=== PATIENT | male | born 1945 | race Caucasian/White ===

== ENCOUNTER 2025-04-01 06:13 | Inpatient (IN) | payer OTHER ==
[~2025-04-01] VITALS: Ht 167.6 cm; Wt 80.1 kg
[2025-04-01] VITALS (16 sets, daily range): BP systolic 157–172; BP diastolic 76–97
[2025-04-01] MEDS ORDERED: Ondansetron HCl 2 MG / ML 2ML Vial IV PRN ×3 (06:25→13:55)
[2025-04-01 06:30] LABS: BASOPHILS ABSOLUTE AUTO 0.01 K/mm3 (0.00-0.23); BASOPHILS PERCENT AUTO 0 % (0-2); EOSINOPHILS ABSOLUTE AUTO 0.02 K/mm3 (0.00-0.68); EOSINOPHILS PERCENT AUTO 0 % (0-6); Hematocrit 38.3 % (37.0-53.0); Hemoglobin 12.9 g/dL (13.5-17.5); IMMATURE GRAN ABSOLUTE AUTO 0.01 K/mm3 (0.00-0.10); IMMATURE GRAN PERCENT AUTO 0 % (0-1); LYMPHOCYTES ABSOLUTE AUTO 1.00 K/mm3 (0.84-5.20); LYMPHOCYTES PERCENT AUTO 11 % (21-46); MONOCYTES ABSOLUTE AUTO 0.59 K/mm3 (0.16-1.47); MONOCYTES PERCENT AUTO 7 % (4-13); Mean Corpuscular HGB Conc 33.7 g/dL (31.5-36.5); Mean Corpuscular Volume 82 fL (80-100); NEUTROPHILS ABSOLUTE AUTO 7.30 K/mm3 (1.96-9.15); NEUTROPHILS PERCENT AUTO 82 % (41-73); NRBC ABSOLUTE 0.00 K/mm3 (0.00-0.02); NRBC Auto 0.0 /100 WBC (0.0-0.2); Platelet Count 189 K/mm3 (150-400); RDW Coefficient Variation 14.6 % (11.7-14.2); RDW Standard Deviation 43.6 fL (35.1-46.3)
[2025-04-01 06:54] LABS: Alanine Aminotransfer (ALT/SGP 65.0 U/L (12-78); Albumin, Blood 3.8 g/dL (3.4-5.0); Albumin/Globulin Ratio 1.0 (0.8-1.8); Anion Gap 7.0 mmol/L (3-11); Aspartate Aminotrans (AST/SGOT 60.0 U/L (12-37); Bilirubin, Total 0.6 mg/dL (0.1-1.0); Blood Urea Nitrogen 12.0 mg/dL (8-24); CO2, Blood 27.0 mmol/L (21-32); Calcium, Blood 9.6 mg/dL (8.5-10.1); Chloride, Blood 106.0 mmol/L (98-108); Creatinine, Blood 0.85 mg/dL (0.60-1.20); Globulin, Blood 3.9 g/dL (2.2-4.0); Glucose, Blood 177.0 mg/dL (70-99); Potassium, Blood 3.8 mmol/L (3.5-5.5); Sodium, Blood 136.0 mmol/L (136-145); Total Protein, Blood 7.7 g/dL (6.4-8.2)
[2025-04-01 08:50] LABS: Source, Urine Clean Catch
[2025-04-01 08:54] LABS: Bilirubin, Urine Neg (Neg); Color, Urine Yellow (P-Yellow); Glucose Qualitative, Urine 2+ (Neg); Ketones, Urine Neg (Neg); Leukocyte Esterase, Urine Neg (Neg); Protein, Urine 2+ (Neg); Specific Gravity, Urine 1.010 (1.003-1.022); Urobilinogen, Urine NORM (Normal)
[2025-04-01 09:03] LABS: White Blood Cells, Urine 0-2 /hpf (0-5)
[2025-04-01 09:04] LABS: Red Blood Cells, Urine 50-100 /hpf (0-2)
[2025-04-01] MEDS ORDERED: Piperacillin/Tazobactam Sod 4.5 GM in NS 100 ML IV ONE ×2 (10:25→10:40)
[2025-04-01] MEDS ORDERED: Morphine Sulfate 4 MG/1 ML Injection IV ONE (10:35)
--- NOTE | 2025-04-01 11:54 | NUR ---
PT HAS 18G IV TO LEFT AC THAT FLUSHES WELL AND FLOWS TO GRAVITY.
--- NOTE | 2025-04-01 12:20 | NUR ---
PT BROUGHT FROM ER TO DAY SURGERY FOR PROCEDURE WITH DR SEGUNDO. History, Chart, Medications and Allergies reviewed before start of procedure. Lungs clear T/O to Auscultation. PT REPORTS DRINKING 1/3 GLASS OF MILK THIS AM AT 0300. CONFIRMS HE HAS BEEN NPO SINCE THAT TIME, WILL NOTIFY OR TEAM. Pre-Op teaching done. Pt verbalizes understanding. PT BELONGINGS PLACED UNDERNEATH GURNEY FOR SAFEKEEPING. PT GLASSES AND DENTURES TAKEN TO PACU FOR SAFEKEEPING.
--- NOTE | 2025-04-01 12:27 | NUR ---
REPORT GIVEN TO DI RODAS TO ASSUME CARE OF PT AT THIS TIME.
[2025-04-01] MEDS ORDERED: Bupivacaine 0.5% HCl 5 MG/ML 30MLVIAL ONE (12:52)
[2025-04-01] MEDS ORDERED: FentaNYL Citrate 50 MCG/ML 5 ML Injection ONE (13:02)
[2025-04-01] MEDS ORDERED: HYDROmorphone HCl/Pf 1MG SYR IV PRN ×2 (13:50)
[2025-04-01] MEDS ORDERED: Labetalol HCL 5 MG/ML 4ML Injection (Single Dose) IV PRN (13:50)
[2025-04-01] MEDS ORDERED: FentaNYL Citrate 50 MCG/ML 2 ML Injection IV PRN ×4 (13:50→22:55)
[2025-04-01] MEDS ORDERED: Metoclopramide HCl 5MG / ML 2ML Vial IV PRN (13:55)
[2025-04-01] MEDS ORDERED: Albuterol 2.5 MG/3 ML VIAL INH PRN (13:55)
[2025-04-01] MEDS ORDERED: Ondansetron HCl 2 MG / ML 2ML Vial ONE (14:52)
[2025-04-01] MEDS ORDERED: Rocuronium Bromide 10 MG/ML 5ML Injection IV ONE ×2 (14:52→15:31)
[2025-04-01] MEDS ORDERED: Dexamethasone Sod Phos 10 MG/ML 1ML VIAL ONE (14:52)
[2025-04-01] MEDS ORDERED: Sugammadex Sodium 200 MG/2ML SDV (100 MG/ML) ONE (15:32)
[2025-04-01] MEDS ORDERED: HYDROmorphone HCl/Pf 1MG SYR ONE (15:39)
[2025-04-01] MEDS ORDERED: FentaNYL Citrate 50 MCG/ML 2 ML Injection ONE (16:36)
[2025-04-01] MEDS ORDERED: NS 250 ML IV PRN (17:45)
[2025-04-01] MEDS ORDERED: Piperacillin/Tazobactam Sod 3.375 GM in NS 100 ML IV SCH (18:00)
--- NOTE | 2025-04-01 18:11 | NUR ---
POST OP S/P ROBOTIC LAP SKY. LAP SITES X3 TO ABD ARE CDI WITH WOUND GLUE. DANIELA TO RLQ WITH SCANT SANGUINOUS AND LEAKING AT INSERTION SITE. GAUZE PLACED TO REINFORCE. PT DROWSY, OPENS EYES TO VERBAL STIMULI, BUT FALLS BACK TO SLEEP QUICKLY. DENIES PAIN. DENIES N/V. IV ABX INFUSING PER ORDERS. POST OP VSS AND IN PROGRESS. CALL LIGHT WITHIN REACH.
[2025-04-02 03:52] VITALS: BP 167/91
--- NOTE | 2025-04-02 05:12 | NUR ---
SHIFT SUMMARY VELMA WAS RECOVERING FROM ANESTHESIA AT START OF SHIFT, BUT RESPONSIVE TO VERBAL STIMULI, AND ABLE TO ANSWER ORIENTATION QUESTIONS APPROPRIATELY. ANESTHESIA WORE OFF T/O SHIFT, PT NOW ALERT AND FULLY ORIENTED. LAP SITES C/D/I. DANIELA DRAINING SANG, BUT ALSO LEAKING AT INSERTION SITE, REINFORCED W/ GAUZE. PT STRAIGHT CATHED FOR TOTAL OF 1600 OUT TONIGHT. PT HAS NOT BEEN OUT OF BED YET. PT PAIN WELL MANAGED AT THIS TIME. NO ACUTE EVENTS TONIGHT.
[2025-04-02 05:38] LABS: Hematocrit 38.7 % (37.0-53.0); Hemoglobin 13.1 g/dL (13.5-17.5); Mean Corpuscular HGB Conc 33.9 g/dL (31.5-36.5); Mean Corpuscular Volume 82 fL (80-100); NRBC ABSOLUTE 0.00 K/mm3 (0.00-0.02); NRBC Auto 0.0 /100 WBC (0.0-0.2); Platelet Count 162 K/mm3 (150-400); RDW Coefficient Variation 14.5 % (11.7-14.2); RDW Standard Deviation 42.8 fL (35.1-46.3)
[2025-04-02 07:15] VITALS: BP 150/84
[2025-04-02 07:43] LABS: Alanine Aminotransfer (ALT/SGP 96.0 U/L (12-78); Albumin, Blood 3.4 g/dL (3.4-5.0); Albumin/Globulin Ratio 0.9 (0.8-1.8); Anion Gap 8.0 mmol/L (3-11); Aspartate Aminotrans (AST/SGOT 83.0 U/L (12-37); Bilirubin, Total 0.8 mg/dL (0.1-1.0); Blood Urea Nitrogen 10.0 mg/dL (8-24); CO2, Blood 26.0 mmol/L (21-32); Calcium, Blood 8.9 mg/dL (8.5-10.1); Chloride, Blood 106.0 mmol/L (98-108); Creatinine, Blood 0.92 mg/dL (0.60-1.20); Globulin, Blood 3.8 g/dL (2.2-4.0); Glucose, Blood 158.0 mg/dL (70-99); Potassium, Blood 3.9 mmol/L (3.5-5.5); Sodium, Blood 136.0 mmol/L (136-145); Total Protein, Blood 7.2 g/dL (6.4-8.2)
[2025-04-02] MEDS ORDERED: OxyCODONE 5 mg/Acetamin 325 mg TABLET PO PRN (08:25)
[2025-04-02] MEDS ORDERED: Enoxaparin 40 MG/0.4 ML SYR SC SCH (09:00)
[2025-04-02] MEDS ORDERED: Polyethylene Glycol 3350 17 gm PO SCH (09:00)
[2025-04-02] MEDS ORDERED: Lactobacil 2-S.Thermo-Bifido 1 1 Cap PO SCH (09:00)
--- NOTE | 2025-04-02 09:00 | NUR ---
pt laying in bed awake watching tv, a/ox3-4, pleasant and cooperative with care, follows commands well, lungs are clear dim in bases, resp even and unlabored, no cough noted, hrr, no edema noted, ppp+1, cap refill <3 sec, vs stable, afebrile, piv site is clear and patent, btx4, abd round soft some tender with palpation, surgical stab wounds noted all are c/d/i, no s/s of infection, open to air, tanner shepherd, is painful when trying to sit up, otherwise pain is ok, call light in reach.
[2025-04-02 15:10] VITALS: BP 152/86
[2025-04-02] MEDS ORDERED: ONDA4ODT MM (18:16)
[2025-04-02] MEDS ORDERED: AZIT250 PO (18:19)
[2025-04-02] MEDS ORDERED: ZESTRIL40 M1 PO (18:21)
[2025-04-02] MEDS ORDERED: ATOR10 PO (18:21)
[2025-04-02] MEDS ORDERED: AMLO10 PO (18:22)
[2025-04-02] MEDS ORDERED: MIRT15 PO (18:22)
[2025-04-02] MEDS ORDERED: MISCINPPO PO (18:23)
[2025-04-02] MEDS ORDERED: GLUCOSAMINE PO (18:25)
[2025-04-02] MEDS ORDERED: ASPIRIN PO (18:26)
--- NOTE | 2025-04-02 18:26 | NUR ---
pt doing well, only needed pain meds once today, ambulated with nurse around the surgical unit, slightly unsteady at first, but once moving he was steady, up to chair for a few hrs. no further changes this shift. call light in reach.
[2025-04-02] MEDS ORDERED: TYLENOL PO (18:27)
--- NOTE | 2025-04-02 19:11 | NUR ---
pt has not voided this shift, he states he doesn't feel like he needs to, got him the supplies and will cath at this time and states he wants to do it himself, his carlos manuel drain put out 20cc this shift, but is leaking around the drain site, call light in reach.
[2025-04-02 20:27] VITALS: BP 155/83
[2025-04-03 03:44] VITALS: BP 166/93
--- NOTE | 2025-04-03 04:42 | NUR ---
SHIFT SUMMARY ROSS WAS ALERT AND FULLY ORIENTED ON ASSESSMENT. PT SELF CATHED AT START OF SHIFT, AND AGAIN EARLY AM. INSTRUCTION PROVIDED ON INFECTION PREVENTION. PT PAINFUL ACROSS ABD, ABD FIRM. H&H STABLE. PT DANIELA DRAIN NOT FUNCTIONING WELL, MOSTLY LEAKING AROUND DRAIN SITE. LAP SITES C/D/I. BT PRESENT BUT HYPOACTIVE. NO ACUTE EVENTS TONIGHT. NO CHANGES TO PT CONDITON.
[2025-04-03 06:06] LABS: Alanine Aminotransfer (ALT/SGP 190.0 U/L (12-78); Albumin, Blood 3.1 g/dL (3.4-5.0); Albumin/Globulin Ratio 0.8 (0.8-1.8); Anion Gap 7.0 mmol/L (3-11); Aspartate Aminotrans (AST/SGOT 182.0 U/L (12-37); Bilirubin, Total 0.8 mg/dL (0.1-1.0); Blood Urea Nitrogen 15.0 mg/dL (8-24); CO2, Blood 28.0 mmol/L (21-32); Calcium, Blood 8.7 mg/dL (8.5-10.1); Chloride, Blood 106.0 mmol/L (98-108); Creatinine, Blood 1.01 mg/dL (0.60-1.20); Globulin, Blood 3.8 g/dL (2.2-4.0); Glucose, Blood 125.0 mg/dL (70-99); Potassium, Blood 3.7 mmol/L (3.5-5.5); Sodium, Blood 137.0 mmol/L (136-145); Total Protein, Blood 6.9 g/dL (6.4-8.2)
[2025-04-03 07:29] VITALS: BP 166/81
[2025-04-03 15:03] VITALS: BP 163/80
--- NOTE | 2025-04-03 15:10 | NUR ---
ROUNDED ON PT. PT LAYING SEMI CONCEPCION IN BED COMFORTABLY. PT ON RA WITH NO SIGNS OF LABORED BREATHING. CALL LIGHT IN PT'S LAP. DANIELA DRAIN WITH SNGUINEOUS DRAINAGE, SMALL AMOUNT OF DRAINAGE.
--- NOTE | 2025-04-03 17:48 | NUR ---
SHIFT SUMMARY PT POST OP ROBOTIC LAP CHOLESYSTECTOMY DAY 2 P T A/OX 4 AND COOPERATIVE OF CARE. PT ABLE TO EXPRESS NEEDS AND CALLS APPROPIATE. PT INDEPENDENT IN BED AND ABLE TO AMBULATE TO BATHROOM TO SELF STRAIGHT CATH PER PT REQUEST, TOLERATED WELL. PT EDUCATED ON STERILE TECHNIQUE, PT TAUGHT BACK. PT SUCCESSFULY CATHED 800ML THIS SHIFT. PT VSS THROUGHOUT SHIFT WITH O2 SATS IN THE 90'S ON RA. NO REPORT OF CHEST PAIN/PRESSURE. NO REPORT OF SOB. PT REPORTED PAIN TO LAPROSCOPIC SITES, TREATED PER EMAR. PT DANIELA DRAIN CONTINUED TO LEAK AT SURGICAL SITE, SURGEON AWARE. DRESSING CHANGED THIS SHIFT.
--- NOTE | 2025-04-03 17:58 | NUR ---
SHIFT SUMMARY PT A/OX 4 AND COOPERATIVE OF CARE. PT ABLE TO EXPRESS NEEDS AND CALLS APPROPIATE. PT INDEPENDENT IN BED AND IN ROOM, TOLERATES WELL. PT HAD PERIOD OF ELEVATED BP RELATED TO PAIN FLARE UP, PER PT. VSS THROUGHOUT SHIFT OTHERWISE. NO REPORT OF CHEST PAIN/PRESSURE THROUGHOUT SHIFT. NO REPORT OF SOB/DYSPNEA THROUGHOUT SHIFT. PT REPORTED ABD PAIN AND NAUSEA THAT WAS CONSTANT THROUGHOUT SHIFT, TREATED PER EMAR AND UNITERUPTED REST. PT PAIN MED FREQUENCY AND NAUSEA MED FREQUENCY CHANGED PER MD. PT ABLE TO REST MOST OF SHIFT AFTER RECIEVING BED BATH.
[2025-04-03 19:06] VITALS: BP 152/83
--- NOTE | 2025-04-04 02:57 | NUR ---
RN TO ROOM TO ROUND; PT ASLEEP WITH EQUAL AND UNLABORED BREATHING. CALL LIGHT WITHIN REACH.
--- NOTE | 2025-04-04 03:49 | NUR ---
PT DANIELA DRAIN DRESSING CHANGED DUE TO LEAKING AROUND DRAIN TUBE; CHG DRESSING AND SPLIT GAUZE USED WITH TAPE REINFORCEMENT. PT WITH NO C/O PAIN DURING PROCEDURE. BED IN LOW POSITION, CALL LIGHT WITHIN REACH.
--- NOTE | 2025-04-04 04:47 | NUR ---
SHIFT SUMMARY POD #3 ROBOTIC SKY. NO ACUTE EVENTS OVERNIGHT. PT WITH 4X LAP SITES, WOUND GLUE CDI. DANIELA AT [facility] WITH MULTIPLE DRESSING CHANGES DUE TO LEAKING FROM SITE. MINIMAL SANG OUTPUT FROM DRAIN. PT PERFORMS STRAIGHT CATH INDEPENDENTLY BUT WOULD LIKE 12F CATHETER.
[2025-04-04 05:24] VITALS: BP 149/92
[2025-04-04 06:15] LABS: Alanine Aminotransfer (ALT/SGP 238.0 U/L (12-78); Albumin, Blood 3.0 g/dL (3.4-5.0); Albumin/Globulin Ratio 0.8 (0.8-1.8); Anion Gap 7.0 mmol/L (3-11); Aspartate Aminotrans (AST/SGOT 184.0 U/L (12-37); Bilirubin, Total 1.0 mg/dL (0.1-1.0); Blood Urea Nitrogen 11.0 mg/dL (8-24); CO2, Blood 28.0 mmol/L (21-32); Calcium, Blood 8.9 mg/dL (8.5-10.1); Chloride, Blood 107.0 mmol/L (98-108); Creatinine, Blood 0.97 mg/dL (0.60-1.20); Globulin, Blood 3.7 g/dL (2.2-4.0); Glucose, Blood 104.0 mg/dL (70-99); Potassium, Blood 3.6 mmol/L (3.5-5.5); Sodium, Blood 138.0 mmol/L (136-145); Total Protein, Blood 6.7 g/dL (6.4-8.2)
[2025-04-04 07:42] VITALS: BP 155/60
[2025-04-04] MEDS ORDERED: ASPI81CH PO (10:25)
[2025-04-04] MEDS ORDERED: GLUC500 PO (10:26)
[2025-04-04] MEDS ORDERED: LISI20 PO (10:27)
[2025-04-04] MEDS ORDERED: MIRT15 PO (10:27)
[2025-04-04] MEDS ORDERED: ONDA4 PO (10:28)
[2025-04-04] MEDS ORDERED: Hair, Skin & N1 EACH PO (10:28)
[2025-04-04] MEDS ORDERED: AMOCLA875 PO (10:29)
[2025-04-04] MEDS ORDERED: OXYC5 PO (10:29)
[2025-04-04] MEDS ORDERED: LACT PO (10:29)
--- NOTE | 2025-04-04 12:45 | NUR ---
DISCHARGE NOTE POD 3 LAP SKY. VSS. PAIN TOLERABLE W/O MANAGEMENT PER EMAR. X4 LAP SITES W/ WOUND GLUE C/D/I. BRUISING NOTED AROUND SITES. DANIELA DRAIN RUQ W/ EPISODES OF LEAKING OVERNIGHT - DRESSING W/ GAUZE AND PRESSURE TAPE C/D/I. SUPPLIES PROVIDED FOR DRAIN MANAGEMENT AND DRESSING CARE AT HOME. TOLERATING PO INTAKE. SELF CATHs AT BASELINE. AMBULATING INDEPENDENTLY. WRITTEN AND VERBAL EDUCATION PROVIDED - PATIENT STATES UNDERSTANDING. IV REMOVED. PERSONAL BELONGINGS WITH PATIENT. PATIENT TRANSFERRED OFF UNIT VIA AT APPROX 1245. FRIENDS TO TRANSPORT PATIENT HOME.
== END 2025-04-04 13:42 | disposition home or self-care (01) | DRG 419 ==
LOC: ER 06:13 → SURS 06:14
PROVIDERS: Student in an Organized Health Care Education/Training Program; Surgery; ADMIT Internal Medicine
PROC: 0DNW4ZZ Release Peritoneum, Percutaneous Endoscopic Approach (ICD-10-PCS; 2025-04-01)
PROC: 0DN94ZZ Release Duodenum, Percutaneous Endoscopic Approach (ICD-10-PCS; 2025-04-01)
PROC: 8E0W4CZ Robotic Assisted Procedure of Trunk Region, Percutaneous Endoscopic Approach (ICD-10-PCS; 2025-04-01)
PROC: BF10YZZ Fluoroscopy of Bile Ducts using Other Contrast (ICD-10-PCS; 2025-04-01)
PROC: 3E03329 Introduction of Other Anti-infective into Peripheral Vein, Percutaneous Approach (ICD-10-PCS; 2025-04-01)
PROC: 0FT44ZZ Resection of Gallbladder, Percutaneous Endoscopic Approach (ICD-10-PCS; principal; 2025-04-01 12:30)
DX: K80.12 Calculus of gallbladder with acute and chronic cholecystitis without obstruction (principal); I25.10 Atherosclerotic heart disease of native coronary artery without angina pectoris; J44.9 Chronic obstructive pulmonary disease, unspecified; N40.0 Benign prostatic hyperplasia without lower urinary tract symptoms; I10 Essential (primary) hypertension; G47.00 Insomnia, unspecified; D64.9 Anemia, unspecified; K66.0 Peritoneal adhesions (postprocedural) (postinfection); R73.9 Hyperglycemia, unspecified; T36.0X5A Adverse effect of penicillins, initial encounter; Z95.1 Presence of aortocoronary bypass graft; Z79.02 Long term (current) use of antithrombotics/antiplatelets
CPT/HCPCS: 36415; 71046; 74177; 76705; 80053; 81001; 83690; 84484; 85025; 85027; 88304; 93005; 93010; 94760; 96365; 96375; 99285-25; A9270; J1100; J1171; J1650; J2270; J2405; J2543; J2704; J3010; J7050; J7120; Q9967